=== PATIENT | male | born 1995 | race Caucasian/White ===

== ENCOUNTER 2018-05-22 05:56 | Emergency (ER) | payer SELFPAY ==
[~2018-05-22] VITALS: Ht 185.4 cm; Wt 88.9 kg
[2018-05-22 06:13] VITALS: BP 139/98
== END 2018-05-22 06:50 | disposition home or self-care (01) ==
LOC: ER 06:04
DX: S61.213A Laceration without foreign body of left middle finger without damage to nail, initial encounter (principal); S60.512A Abrasion of left hand, initial encounter; S60.511A Abrasion of right hand, initial encounter; Z88.8 Allergy status to other drugs, medicaments and biological substances; Z86.711 Personal history of pulmonary embolism; Z98.890 Other specified postprocedural states; F32.9 Major depressive disorder, single episode, unspecified; W25.XXXA Contact with sharp glass, initial encounter; Y93.89 Activity, other specified; Y92.89 Other specified places as the place of occurrence of the external cause; Y99.8 Other external cause status
CPT/HCPCS: 99284; A4606; Z7610